=== PATIENT | male | born 1930 | race African-American/Black ===

== ENCOUNTER 2016-03-31 15:39 | Inpatient (IN) | payer MEDICARE, OTHER ==
[2016-03-31] VITALS (8 sets, daily range): BP systolic 97–130; RESP 17–23; TEMP 98.7; Ht 182.9 cm; Wt 66.7 kg
[~2016-03-31] VITALS: Ht 182.9 cm; Wt 66.7 kg
[2016-03-31] MEDS ORDERED: MORPHINE 4 MG/ML SYR IV PRN (17:05)
[2016-03-31] MEDS ORDERED: SODIUM CHLORIDE 0.9% 1,000 ML IV SCH (17:05)
[2016-03-31] MEDS ORDERED: BISACODYL 10 MG SUPP RECTAL PRN (17:05)
[2016-03-31] MEDS ORDERED: ACETAMINOPHEN 325 MG TAB PO PRN (17:05)
[2016-03-31] MEDS ORDERED: ALU/MAG/SIM 30 ML UDC PO PRN (17:05)
[2016-03-31] MEDS ORDERED: MAG HYDROX 30 ML UDC PO PRN (17:05)
[2016-03-31] MEDS ORDERED: PROMETHAZINE 25 MG/ML VIAL IV PRN (17:05)
[2016-03-31] MEDS ORDERED: BISACODYL EC 5 MG TAB PO PRN (17:05)
[2016-03-31] MEDS ORDERED: SALINE FLUSH 10 ML FLUSH PRN (17:05)
[2016-03-31] MEDS ORDERED: ADD HEIGHT/WEIGHT/ALLERGY INFO XX SCH (20:12)
[2016-03-31] MEDS ORDERED: AZITHROMYCIN 500 MG in SODIUM CHLORIDE 0.9% 250 ML IV SCH (21:05)
[2016-03-31] MEDS: AMIODARONE 450 MG in DEXTROSE 5% AVIVA 250 ML IV SCH (21:07)
[2016-03-31] MEDS: PIPERACIL/TAZO 3.375GM/50ML 50 ML IV SCH (21:19)
[2016-03-31] MEDS: MORPHINE 2 MG/ML SYR IV PRN (22:43)
[2016-03-31] MEDS: SALINE FLUSH 10 ML FLUSH SCH (22:46)
[2016-03-31] MEDS: MAGNESIUM SULF 1 GM/100 ML 100 ML IV SCH ×2 (23:05→23:38)
[2016-04-01] VITALS (25 sets, daily range): BP systolic 92–141; RESP 12–24; TEMP 96.1–99.4
[2016-04-01] MEDS: SODIUM CHLORIDE 0.9% FLUSH BAG 500 ML IV SCH (05:51)
[2016-04-01] MEDS: NEB-BUDESONIDE 0.25 MG INH SCH ×2 (06:09→18:48)
[2016-04-01] MEDS: NEB-ALBUTEROL 2.5 MG/3 ML INH PRN ×5 (06:13→22:30)
[2016-04-01] MEDS: PIPERACIL/TAZO 3.375GM/50ML 50 ML IV SCH ×4 (06:22→22:08)
[2016-04-01] MEDS: PANTOPRAZOLE 40 MG TAB PO SCH (06:23)
[2016-04-01] MEDS: AMIODARONE 450 MG in DEXTROSE 5% AVIVA 250 ML IV SCH (06:59)
[2016-04-01] MEDS: SALINE FLUSH 10 ML FLUSH SCH ×2 (08:18→20:20)
[2016-04-01] MEDS ORDERED: Ibuprofen 800 MG TAB PO PRN (08:30)
[2016-04-01] MEDS ORDERED: HCTZ PO SCH (09:00)
[2016-04-01] MEDS ORDERED: VALSARTAN PO SCH (09:00)
[2016-04-01] MEDS: ALLOPURINOL 100 MG TAB PO SCH (09:55)
[2016-04-01] MEDS: VALSARTAN 80 MG TAB PO SCH (09:55)
[2016-04-01] MEDS: FERROUS SULF 325 MG TAB PO SCH ×2 (09:55→20:21)
[2016-04-01] MEDS: FLUTICASONE 0.05% NA BTL NARE EACH SCH ×2 (09:55→20:22)
[2016-04-01] MEDS: HCTZ 25 MG TAB PO SCH (09:55)
[2016-04-01] MEDS: amLODIPine 10 MG TAB PO SCH (09:56)
[2016-04-01] MEDS: FAMOTIDINE 40 MG TAB PO SCH (09:56)
[2016-04-01] MEDS ORDERED: MISSING DOSE XX ONE ×2 (10:15→18:10)
[2016-04-01] MEDS: ASPIRIN 81 MG CHEW TAB PO SCH (10:38)
[2016-04-01] MEDS ORDERED: PROMETHAZINE/COD 5 ML UDC PO PRN (11:30)
[2016-04-01] MEDS: MORPHINE 2 MG/ML SYR IV PRN (15:25)
[2016-04-01] MEDS: NEB-BROVANA 15 MCG/2 ML INH SCH (18:48)
[2016-04-02] MEDS: NEB-ALBUTEROL 2.5 MG/3 ML INH PRN ×4 (02:37→14:57)
[2016-04-02 03:07] VITALS: BP_SYST 97; RESP 18; TEMP 98.7
[2016-04-02] MEDS: SODIUM CHLORIDE 0.9% FLUSH BAG 500 ML IV SCH (05:19)
[2016-04-02] MEDS: PIPERACIL/TAZO 3.375GM/50ML 50 ML IV SCH (05:19)
[2016-04-02] MEDS: PANTOPRAZOLE 40 MG TAB PO SCH (05:19)
[2016-04-02] MEDS: NEB-BROVANA 15 MCG/2 ML INH SCH (06:25)
[2016-04-02] MEDS: NEB-BUDESONIDE 0.25 MG INH SCH (06:26)
[2016-04-02] MEDS ORDERED: MDI-SPIRIVA 5 DOSES INH SCH (07:00)
[2016-04-02 07:26] VITALS: BP_SYST 125; RESP 18; TEMP 98.2
[2016-04-02] MEDS: HCTZ 25 MG TAB PO SCH (08:42)
[2016-04-02] MEDS: FAMOTIDINE 40 MG TAB PO SCH (08:42)
[2016-04-02] MEDS: ALLOPURINOL 100 MG TAB PO SCH (08:43)
[2016-04-02] MEDS: amLODIPine 10 MG TAB PO SCH (08:43)
[2016-04-02] MEDS: FLUTICASONE 0.05% NA BTL NARE EACH SCH (08:44)
[2016-04-02] MEDS: FERROUS SULF 325 MG TAB PO SCH (08:44)
[2016-04-02] MEDS: VALSARTAN 80 MG TAB PO SCH (08:45)
[2016-04-02] MEDS: SALINE FLUSH 10 ML FLUSH SCH (08:45)
[2016-04-02] MEDS: ASPIRIN 81 MG CHEW TAB PO SCH (08:49)
[2016-04-02 15:59] VITALS: BP_SYST 108; RESP 18; TEMP 98.6
[2016-04-02] MEDS ORDERED: MAG OXIDE 400 MG TAB PO SCH (21:00)
== END 2016-04-02 17:10 | disposition home or self-care (01) | DRG 872 ==
LOC: ENRESERVDT → ENRESERVTM → CCU 19:50 → ENPENDDIS 19:50 → 4THE 04-01 12:46
PROVIDERS: ADMIT Internal Medicine; ATTEND Internal Medicine
DX: A41.9 Sepsis, unspecified organism (principal); N17.9 Acute kidney failure, unspecified; I48.0 Paroxysmal atrial fibrillation; M87.9 Osteonecrosis, unspecified; E86.0 Dehydration; M10.9 Gout, unspecified; I12.9 Hypertensive chronic kidney disease with stage 1 through stage 4 chronic kidney disease, or unspecified chronic kidney disease; N18.9 Chronic kidney disease, unspecified; M16.12 Unilateral primary osteoarthritis, left hip; R91.8 Other nonspecific abnormal finding of lung field; T79.6XXA Traumatic ischemia of muscle, initial encounter; R33.9 Retention of urine, unspecified
CPT/HCPCS: 80048; 82550; 83605; 83735; 84439; 84443; 85025; 85610; 85652; 85730; 87040; 93306; 94640; 99223; 99233